=== PATIENT | male | born 1965 | race Caucasian/White ===

== ENCOUNTER 2023-02-21 09:12 | Emergency (ER) | payer OTHER ==
[~2023-02-21] VITALS: Ht 177.8 cm; Wt 99.8 kg
[2023-02-21 09:21] VITALS: BP 170/110
--- NOTE | 2023-02-21 09:33 | NUR ---
PT AMB TO BED 2
--- NOTE | 2023-02-21 09:47 | NUR ---
57YO MALE PT C/O ANXIETY. STATES BEING OUT OF RX [facility] X2DAYS. DENIES CHEST PAIN OR SOB. PT AAOX4, SPEAKING IN CLEAR FULL SENTENCES. RESPIRATIONS EVEN AND UNLABORED. ON MANAGER ETL. HX: ANXIETY, HTN, IRREGULAR HEART BEAT, ARTHRITIS NKA
--- NOTE | 2023-02-21 10:09 | NUR ---
MD BHATT AT BEDSIDE FOR EVALUATION
[2023-02-21] MEDS ORDERED: ATA25 PO (10:19)
--- NOTE | 2023-02-21 11:00 | NUR ---
Patient discharged with v/s stable. Written and verbal after care instructions FOR HTN AND GEN ANXIETY given and explained. Patient alert, oriented and verbalized understanding of instructions. Ambulatory with steady gait. All questions addressed prior to discharge. ID band removed. Patient advised to follow up with PMD. Rx of ATARAX HCL given. Opportunity to ask questions provided and answered.
--- NOTE | 2023-02-21 11:08 | NUR ---
The patient's care was reviewed and supervised by [facility], RN.
== END 2023-02-21 11:00 | disposition home or self-care (01) ==
LOC: MED 09:12
DX: F41.9 Anxiety disorder, unspecified (principal); Z76.0 Encounter for issue of repeat prescription; M19.90 Unspecified osteoarthritis, unspecified site; I10 Essential (primary) hypertension; Z79.899 Other long term (current) drug therapy
CPT/HCPCS: 99283

== ENCOUNTER 2023-09-17 12:20 | Emergency (ER) | payer OTHER ==
[~2023-09-17] VITALS: Ht 177.8 cm; Wt 104.3 kg
[~2023-09-17 12:20] MED LIST: ATA25 PO
[2023-09-17 12:29] VITALS: BP 148/74; PULSE 81; RESP 18; TEMP 97.5; O2SAT 98
[2023-09-17] MEDS ORDERED: CLON0.5T PO ×2 (13:10→13:16)
== END 2023-09-17 13:48 | disposition home or self-care (01) ==
LOC: MED 12:20
DX: F41.9 Anxiety disorder, unspecified (principal); I10 Essential (primary) hypertension; Z76.0 Encounter for issue of repeat prescription; Z88.0 Allergy status to penicillin; Z79.899 Other long term (current) drug therapy
CPT/HCPCS: 99281

== ENCOUNTER 2023-10-08 16:47 | Emergency (ER) | payer OTHER ==
[~2023-10-08] VITALS: Ht 177.8 cm; Wt 99.8 kg
[~2023-10-08 16:47] MED LIST changes: +CLON0.5T PO
[2023-10-08 17:08] VITALS: BP 143/81; PULSE 76; RESP 18; TEMP 98.8; O2SAT 95
[2023-10-08] MEDS ORDERED: HYDROcodone/APAP 5/325 MG 1 TAB TAB PO ONE (18:40)
[2023-10-08] MEDS ORDERED: CIPR7.5S OT (18:44)
[2023-10-08] MEDS ORDERED: ACET-8905 PO (18:44)
[2023-10-08 18:58] VITALS: BP 143/81; PULSE 76; RESP 18; TEMP 98.8; O2SAT 95
== END 2023-10-08 18:59 | disposition home or self-care (01) ==
LOC: MED 16:47
DX: H60.502 Unspecified acute noninfective otitis externa, left ear (principal); I10 Essential (primary) hypertension; Z79.899 Other long term (current) drug therapy; Z79.2 Long term (current) use of antibiotics; Z88.0 Allergy status to penicillin
CPT/HCPCS: 99283

== ENCOUNTER 2023-10-15 13:23 | Emergency (ER) | payer OTHER ==
[~2023-10-15] VITALS: Ht 177.8 cm; Wt 99.8 kg
[~2023-10-15 13:23] MED LIST changes: +ACET-8905 PO; +CIPR7.5S OT
[2023-10-15 13:42] VITALS: BP 123/73; PULSE 76; RESP 18; TEMP 98.8; O2SAT 96
[2023-10-15] MEDS ORDERED: CLON1TAB PO (14:13)
[2023-10-15] MEDS ORDERED: OFLO5SOL27 LEFT EAR (14:13)
[2023-10-15] MEDS ORDERED: AZIT250T4 PO (14:13)
[2023-10-15 14:21] VITALS: BP 123/73; PULSE 76; RESP 18; TEMP 98.8; O2SAT 96
== END 2023-10-15 14:21 | disposition home or self-care (01) ==
LOC: MED 13:23
DX: H92.02 Otalgia, left ear (principal); F41.9 Anxiety disorder, unspecified; I10 Essential (primary) hypertension; Z88.0 Allergy status to penicillin; Z79.899 Other long term (current) drug therapy
CPT/HCPCS: 99283

== ENCOUNTER 2023-11-15 08:52 | Emergency (ER) | payer OTHER ==
[~2023-11-15] VITALS: Ht 177.8 cm; Wt 104.3 kg
[~2023-11-15 08:52] MED LIST changes: +AZIT250T4 PO; +CLON1TAB PO; +OFLO5SOL27 LEFT EAR
[2023-11-15 08:59] VITALS: BP 153/92; PULSE 88; RESP 22; TEMP 97.9; O2SAT 100
== END 2023-11-15 10:00 | disposition left against medical advice (07) ==
LOC: MED 08:52
DX: F41.9 Anxiety disorder, unspecified (principal); I10 Essential (primary) hypertension; Z88.0 Allergy status to penicillin; Z79.899 Other long term (current) drug therapy
CPT/HCPCS: 99281